=== PATIENT | male | born 1995 | race Caucasian/White ===

== ENCOUNTER 2020-06-26 00:19 | Emergency (ER) | payer MEDICAID ==
[~2020-06-26] VITALS: Ht 172.7 cm; Wt 81.6 kg
[2020-06-26 00:29] VITALS: BP 137/75
[2020-06-26] MEDS ORDERED: TDAP [DIPH/PERTUSSIS/TET] 0.5 ML VIAL IM ONE ×2 (00:30→00:51)
--- NOTE | 2020-06-26 00:40 | NUR ---
CALLED FRANCIS[facility] SPOKE TO [employer] APPRENTICE 210; WILL SEND OFFICER TO TAKE REPORT
--- NOTE | 2020-06-26 01:22 | NUR ---
[facility] AT BEDSIDE
== END 2020-06-26 01:22 | disposition home or self-care (01) ==
LOC: ER 00:19
DX: S01.01XA Laceration without foreign body of scalp, initial encounter (principal); Z59.0 Homelessness; Y08.89XA Assault by other specified means, initial encounter; Y93.89 Activity, other specified; Y92.89 Other specified places as the place of occurrence of the external cause; Y99.8 Other external cause status
CPT/HCPCS: 90715

== ENCOUNTER 2020-07-04 13:24 | Emergency (ER) | payer MEDICAID ==
[~2020-07-04] VITALS: Ht 167.6 cm; Wt 68.0 kg
[2020-07-04 13:34] VITALS: BP 128/91
== END 2020-07-04 14:31 | disposition home or self-care (01) ==
LOC: ER 13:35
DX: S01.01XD Laceration without foreign body of scalp, subsequent encounter (principal); X58.XXXD Exposure to other specified factors, subsequent encounter